=== PATIENT | male | born 1945 | race Caucasian/White ===

== ENCOUNTER 2022-05-07 11:00 | Outpatient (CLI) | payer MEDICARE, BC, SELFPAY ==
[2022-05-07 12:39] LABS: Albumin* 4.1 g/dL (3.3-5.0); Chloride* 105 mmol/L (96-114)
[2022-05-07 12:40] LABS: Potassium* 4.3 mmol/L (3.6-5.1); Sodium* 138 mmol/L (135-149)
[2022-05-07 12:42] LABS: Alkaline Phosphatase* 60 U/L (40-150); Aspartate Amino Transferase* 25 U/L (12-35); Bilirubin Total* 0.6 mg/dL (0.1-1.5); Blood Urea Nitrogen* 26 mg/dL (7-30); Carbon Dioxide* 30 mmol/L (20-32); Cholesterol* 152 mg/dL (90-199); Creatinine* 1.4 mg/dL (0.5-1.5); Estimated Glomerular Filt Rate 52.41; Glucose* 106 mg/dL (60-115); Triglycerides* 168 mg/dL (40-149)
[2022-05-07 12:43] LABS: Alanine Aminotransferase* 14 U/L (4-50); Calcium* 9.8 mg/dL (8.4-10.6); HDL Cholesterol* 44 mg/dL (>=40); LDL Cholesterol Calculated 74 mg/dL (<100)
[2022-05-07 13:14] LABS: PSA Screen* 2.24 ng/mL (0.10-4.00)
== END 2022-05-07 11:01 | disposition home or self-care (01) ==
PROVIDERS: PCP Internal Medicine; Visit Provider Internal Medicine
DX: Z00.00 Encounter for general adult medical examination without abnormal findings (principal); E78.5 Hyperlipidemia, unspecified; Z12.5 Encounter for screening for malignant neoplasm of prostate
CPT/HCPCS: 80053; 80061; 84153

== ENCOUNTER 2023-05-12 08:42 | Outpatient (CLI) | payer MEDICARE, BC, SELFPAY | END 2023-05-12 08:43 | disposition home or self-care (01) | LOC: NFLDREF 05-13 10:59 | PROVIDERS: PCP Internal Medicine; Referring Provider Internal Medicine; Visit Provider Internal Medicine | DX: E78.5 Hyperlipidemia, unspecified (principal); I10 Essential (primary) hypertension; N52.9 Male erectile dysfunction, unspecified; Z12.5 Encounter for screening for malignant neoplasm of prostate | CPT/HCPCS: 80053; 80061; 84153 ==

== ENCOUNTER 2023-05-14 15:19 | Outpatient (CLI) | payer MEDICARE, BC, SELFPAY | END 2023-05-14 15:20 | disposition home or self-care (01) | LOC: NFLDREF 15:20 | PROVIDERS: PCP Internal Medicine; Visit Provider Internal Medicine | DX: Z00.00 Encounter for general adult medical examination without abnormal findings (principal); I10 Essential (primary) hypertension; E78.5 Hyperlipidemia, unspecified; N52.9 Male erectile dysfunction, unspecified | CPT/HCPCS: 84270; 84402; 84403 ==

== ENCOUNTER 2024-05-14 08:28 | Outpatient (CLI) | payer MEDICARE, BC, SELFPAY ==
--- OUTSIDE RECORDS SUMMARY | 2024-05-14 17:50 | XMS_ITS | Clinical Summary ---
Author Organization [facility] Address [place], [place] [address] Care Team Providers Care Rn Neurology Name Role Phone Ric Gonzalez MD Primary Care Provider [phone] Allergies Active Allergy Reactions Criticality Noted Date Comments Oxycodone Nausea Only 08/21/2018 Medications Medication Sig Dispensed Refills Start Date End Date Status simvastatin (ZOCOR) 10 mg tablet Take 1 tablet by mouth at bedtime. 0 03/16/2012 Active Active Problems Problem Noted Date Diagnosed Date Diverticulosis of large intestine without hemorr vanessa Immunizations Name Administration Dates Next Due Influenza A (H1N1), Inactivated (Age >=3 Years) 11/08/2009 Influenza, IIV3 (Age >=3 years) 07/29/2011,08/09 Pneumococcal Poly,23-Valent (Pneumovax) 05/07/20 11 Pneumococcal conj 13-Valent (Prevnar 13) 014 Family History Medical History Relation Name Comments Heart Disease Father Heart Disease Mother Relation Name Status Comments Father Mother Social History Tobacco Use Types Packs/Day Years Used Date Smoking Tobacco: Never Smokeless Tobacco: Never Alcohol Use Standard Drinks/Week Comments Yes 0 (1 standard drink = 0.6 oz pur e alcohol) 3-4 times per week, one drink Sex and Gender Information Value Date Recorded Sex Assigned at Not on file Gender Identity Not on file Sexual Orientation Not on file Obstetrics History Last Filed Vital Signs Vital Sign Reading Time Taken Comments Blood Pressure 135/70 08/21/2018 10:15 AM CDT Pulse 72 08/21/2018 10:15 AM CDT Temperature 36.8 ??C (98.3 ??F) 08/21/2018 7:53 AM CD T Respiratory Rate 16 08/21/2018 10:15 AM CDT Oxygen Saturation 97% 08/21/2018 10:15 AM CDT Inhaled Oxygen Concentration - - Weight 89.9 kg (198 lb 3.1 oz) 08/21/2018 7:53 A M CDT Height 179.1 cm (5' 10.5) 08/21/2018 7:53 AM CD T Body Mass Index 28.04 08/21/2018 7:53 AM CDT Plan of Treatment Health Maintenance Due Date Last Done Comments Tdap 1956 Depression screening for age 12+ 1958 BMI (ht and wt on same day) for age 18+ 1964 Hepatitis C screening for age 18-79 1964 Tetanus booster 1966 Zoster (shingles) series for age 50+ (1 of 2) 1996 Pneumococcal series for age 65+ (3 of 3 - PPSV23 or PCV20) 11/01/2019 11/01/2014, 05/07/2011 COVID-19 vaccine series ( season) 2023 Influenza for age 65+ 07/04/2024 07/29/2011 , 08/09/2010, 11/08/2009 Advance Directives Documents on File 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
== END 2024-05-14 08:29 | disposition home or self-care (01) ==
LOC: NFLDREF 17:49
PROVIDERS: PCP Internal Medicine; Referring Provider Internal Medicine; Visit Provider Internal Medicine
DX: I10 Essential (primary) hypertension (principal); E78.5 Hyperlipidemia, unspecified; Z12.5 Encounter for screening for malignant neoplasm of prostate
CPT/HCPCS: 80053; 80061; G0103

== ENCOUNTER 2024-07-22 08:26 | Outpatient (CLI) | payer MEDICARE, BC, SELFPAY ==
--- OUTSIDE RECORDS SUMMARY | 2024-07-25 02:23 | XMS_ITS | Clinical Summary ---
Author Organization [facility] Address [place], [place] [address] Care Team Providers Care Brazer Crawler Torch Name Role Phone Ric Gonzalez MD Primary Care Provider Allergies Active Allergy Reactions Criticality Noted Date Comments Oxycodone Nausea Only 08/21/2018 Medications Medication Sig Dispensed Refills Start Date End Date Status simvastatin (ZOCOR) 10 mg tablet Take 1 tablet by mouth at bedtime. 0 03/16/2012 Active polyethylene glycol-electrolyte (Golytely) 236-22.74-6.74 -5.86 gram suspensionIndications :Screen for colon cancer Take 4,000 mL by mouth one time for 1 dose. 4000 mL 07/02/2024 07/02/2024 Active Problems Problem Noted Date Diagnosed Date Diverticulosis of large intestine without hemorr vanessa Encounters Date Type Department Care Team Description 07/02/2024 8:14 AM CDT - 07/02/2024 11:59 PM CDT Hospital Encounter [facility] [address] [place] [address] Guillaume Hill MD Other male erectile dysfunction; Unilateral inguinal hernia without obstruction or gangrene, recurrence not specified 07/02/2024 Telephone [facility] [address] [place] [phone] Atul Cheema DO Screening 07/02/2024 Transcribe Orders [facility] [address] [place] [address] Ric Gonzalez MD 07/02/2024 Travel 06/22/2024 Telephone [facility] [address] [place] [address] Ric Gonzalez MD Outside Order (ORDER REFERRAL FOR COLONOSCOPY ) from Last 3 Months Immunizations Name Administration Dates Next Due Influenza [...] 08/21/2018 7:53 AM CDT Plan of Treatment Upcoming Encounters Date Type Department Care Team (Late st Contact Info) Description 09/07/2024 9:10 AM 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 Hospital Encounter [facility] [address] [facility] [place] [address] Ernestina Mclean, DO [address] [facility] [place] [address] 09/07/2024 9:10 AM ROUNDHOUSE SUPERVISOR - 09/07/2024 10:00 AM ROUNDHOUSE SUPERVISOR Surgery [facility] [address] [facility] [address] [place] [address] Ernestina Mclean DO [address] [place] [address] COLONOSCOPY Scheduled Procedures Name Priority Associated Diagnoses Date/Ti me COLONOSCOPY Screen for colon cancer 09/07/2024 9:10 AM ROUNDHOUSE SUPERVISOR Health Maintenance Due Date Last Done Comments Tdap 1956 Depression screening for age 12+ 1958 BMI (ht and wt on same day) for age 18+ 1964 Hepatitis C screening for age 18-79 1964 Tetanus booster 1966 Zoster (shingles) series for age 50+ (1 of 2) 1996 RSV vaccine for adults or pr egnancy (1 - 1-dose 60+ series) 2006 Pneumococcal series for age 65+ (3 of 3 - PPSV23 or PCV20) 11/01/2019 11/01/2014, 05/07/2011 COVID-19 vaccine series (3 - season) 2024 08/01/2023, 07/17/2022 Influenza for age 65+ 07/04/2024 07/29/2011 , 08/09/2010, 11/08/2009 Procedures Procedure Name Priority Date/Time Associated Diagnosis Comments CT ABDOMEN PELVIS W Routine 07/02/2024 8 :42 AM CDT Other male erectile dysfunction Unilateral inguinal hernia without obstruction or gangrene, recurrence not specified CREATININE,ISTAT Routine 07/02/2024 8:30 AM CDT from Last 3 Months Results * CT ABDOMEN PELVIS W (07/02/2024 8:42 AM CDT) Anatomical Region Laterality Modality Abdomen, Pelvis, AORTA, LIVER, SPLEEN Computed Tomography 07/04/2024 10:4 1 AM CDT Impressions 07/04/2024 10:41 AM CDT 1. Moderate right inguinal hernia, large left inguinal hernia containing bowel without incarceration/obstruction. 2. Enlarged prostate gland. Wall thickening urinary bladder incompletely distended poor visualization of the pelvis with streak artifact from hip arthroplasties Please note that all CT scans at this facility use dose modulation, iterative reconstruction, and/or weight-based dosing when appropriate to reduce radiation dose to as low as reasonably achievable. Dictated by Melia Minor MD @ 07/04/2024 10:41:13 AM (Electronically Signed) Narrative 07/04/2024 10:41 AM CDT For Patients: ??As a result of the Cures Act, medical imaging exams and procedure reports are released immediately into your electronic medical record. ??You may view this report before your referring provider. ??If you have questions, please contact your health care provider. INDICATION: Inguinal hernia without obstruction TECHNIQUE: CT abdomen and pelvis with 100 mL Omnipaque 350 COMPARISON: None. FINDINGS: Lower chest: The heart is mildly enlarged coronary artery calcification. Liver: Tiny too small to characterize low-attenuation lesions in the liver Gallbladder and bile ducts: No stones or inflammation. No biliary dilatation. Pancreas: Unremarkable. No mass or inflammation. Spleen: Normal in size. No masses. Adrenal glands: Normal in size. No nodules. Kidneys: Normal in size. No suspicious masses, stones, or hydronephrosis. GI tract: Duodenal diverticulum. Normal appendix. Diverticulosis. Vasculature: Abdominal aorta is normal in caliber. Lymph nodes: No lymphadenopathy. Peritoneum/Abdominal Wall: Bilateral inguinal hernias containing bowel moderate on the right large on the left. No obstruction is seen trace amount of fluid in the right inguinal hernia sac. No inflammatory changes visualized Pelvis: Wall thickening urinary bladder which is incompletely distended. Enlarged prostate gland Bones: Hip arthroplasty causing streak artifact in the pelvis Procedure Note Melia Minor MD - 07/04/2024 For Patients: As a result of the Cures Act, medical imagingexams and procedure reports are released immediately into your electronicmedical record. You may view this report before your referring provider.If you have questions, please contact your health care provider. INDICATION: Inguinal hernia without obstruction TECHNIQUE: CT abdomen and pelvis with 100 mL Omnipaque 350 COMPARISON: None. FINDINGS: Lower chest: The heart is mildly enlarged coronary artery calcification. Liver: Tiny too small to characterize low-attenuation lesions in the liver Gallbladder and bile ducts: No stones or inflammation. No biliarydilatation. Pancreas: Unremarkable. No mass or inflammation. Spleen: Normal in size. No masses. Adrenal glands: Normal in size. No nodules. Kidneys: Normal in size. No suspicious masses, stones, or hydronephrosis. GI tract: Duodenal diverticulum. Normal appendix. Diverticulosis. Vasculature: Abdominal aorta is normal in caliber. Lymph nodes: No lymphadenopathy. Peritoneum/Abdominal Wall: Bilateral inguinal hernias containing bowelmoderate on the right large on the left. No obstruction is seen traceamount of fluid in the right inguinal hernia sac. No inflammatory changesvisualized Pelvis: Wall thickening urinary bladder which is incompletely distended.Enlarged prostate gland Bones: Hip arthroplasty causing streak artifact in the pelvis IMPRESSION: 1. Moderate right inguinal hernia, large left inguinal hernia containingbowel without incarceration/obstruction. 2. Enlarged prostate gland. Wall thickening urinary bladder incompletelydistended poor visualization of the pelvis with streak artifact from hiparthroplasties Please note that all CT scans at this facility use dose modulation,iterative reconstruction, and/or weight-based dosing when appropriate toreduce radiation dose to as low as reasonably achievable. Dictated by Melia Minor MD @ 07/04/2024 10:41:13 AM (Electronically Signed) Guillaume Sebastian Hill MD CT * (ABNORMAL) CREATININE,ISTAT (07/02/2024 8:30 AM CDT) CREATININE, POCT 1.40(H) 0.57 - 1.11 mg/dL 07/02/2024 8:34 AM [facility] Comment:Caution: Patients ta aniceto Hydroxyurea have falsely increased iStat Creatinine results. Verify creatinine results ordering a Creatinine (36561.2) eGFR 51(L) >90 mL/min/1.7 3m2 07/02/2024 8:34 AM [facility] Comment:As of 2022, eG FR is calculated by the CKD-EPI creatinine equation without race adjustment. eGFR can be influenced by muscle mass, exercise, and diet. The reported eGFR is an estimation only and is only applicable if the renal function is stable. 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
== END 2024-07-22 08:27 | disposition home or self-care (01) ==
LOC: NFLDREF 07-25 02:20
PROVIDERS: PCP Internal Medicine; Referring Provider Internal Medicine; Visit Provider Internal Medicine
DX: N52.9 Male erectile dysfunction, unspecified (principal)
CPT/HCPCS: 84403

== ENCOUNTER 2024-08-26 09:17 | Outpatient (CLI) | payer MEDICARE, BC, SELFPAY ==
--- OUTSIDE RECORDS SUMMARY | 2024-08-26 09:21 | XMS_ITS | Clinical Summary ---
Author Organization [facility] Address [place], [place] [address] Care Team Providers Care Tool Coordinator Name Role Phone Ric Gonzalez MD Primary [...] Encounters Date Type Department Care Team Description 08/20/2024 Telephone [facility] [address] [place] [address] Ernestina Mclean DO Appointment (Cancellation 09/07/2024) 07/02/2024 8:14 AM CDT - 07/02/2024 11:59 PM CDT Hospital Encounter [facility] [address] [place] [address] Guillaume Hill MD Other male erectile dysfunction; Unilateral inguinal hernia without obstruction or gangrene, recurrence not specified 07/02/2024 Telephone [facility] [address] [place] [address] Atul Cheema DO Screening 07/02/2024 Transcribe Orders [facility] [address] [place] [address] Ric Gonzalez MD 07/02/2024 Travel 06/22/2024 Telephone [facility] [address] [place] [address] Ric Gonzalez MD Outside Order (ORDER REFERRAL [...] age 18+ 1964 Hepatitis C screening for ag e 18-79 1964 Tetanus booster 1966 Zoster (shingles) series for age 50+ (1 of 2) 1996 Pneumococcal series for age 65+ (3 of 3 - PPSV23 or PCV20) 11/01/2019 11/01/2014, 05/07/2011 RSV vaccine for adults or (1 - 1-dose 75+ series) 2021 Influenza for age 65+ 07/04/2024 07/29/2011 , 08/09/2010, 11/08/2009 COVID-19 vaccine series Completed 07/22/20 24, 08/01/2023, 07/17/2022, Additional history exists Procedures Procedure Name Priority Date/Time Associated Diagnosis [...] For Patients: ??As a result of the Century Cures Act, medical imaging exams and procedure [...] @ 07/04/2024 10:41:13 AM (Electronically Signed) Guillaume Hill MD CT * (ABNORMAL) CREATININE,ISTAT (07/02/2024 8:30 AM CDT) CREATININE, POCT 1.40(H) 0.57 - 1.11 mg/dL 07/02/2024 8:34 AM CDT [facility] Comment:Caution: Patients ta aniceto Hydroxyurea have falsely increased iStat Creatinine results. Verify creatinine results ordering a Creatinine (66643.2) eGFR 51(L) >90 mL/min/1.7 3m2 07/02/2024 8:34 AM CDT [facility] Comment:As of 2022, eG FR is calculated by the CKD-EPI creatinine equation without race adjustment. eGFR can be influenced by muscle mass, exercise, and diet. The reported eGFR is an estimation only and is only applicable if the renal function is stable. 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
--- NOTE | 2024-08-26 10:43 | W.ANESCHARGE ---
Anesthesia Charges Start Date/Time Anesthesia Start Date: 08/26/24 Anesthesia Start Time: 10:17 Stop Date/Time Anesthesia Stop Date: 08/26/24 Anesthesia Stop Time: 10:51 Summary Extremes of Age - Over 70 or under 1: MDA
--- NOTE | 2024-08-26 10:54 | W.ANESCHARGE ---
Anesthesia Charges Start Date/Time Anesthesia Start Date: 08/26/24 Anesthesia Start Time: 10:17 Stop Date/Time Anesthesia Stop Date: 08/26/24 Anesthesia Stop Time: 10:51
== END 2024-08-26 09:18 | disposition home or self-care (01) ==
LOC: OP CLINIC 09:20
PROVIDERS: PCP Internal Medicine; Visit Provider Surgery
DX: Z12.11 Encounter for screening for malignant neoplasm of colon (principal); K57.30 Diverticulosis of large intestine without perforation or abscess without bleeding; K64.4 Residual hemorrhoidal skin tags; Z86.0100 Personal history of colon polyps, unspecified
CPT/HCPCS: 00812; 45378; 99100; J2704

== ENCOUNTER 2025-02-24 06:27 | Day surgery (SDC) | payer MEDICARE, BC, SELFPAY ==
[2025-02-24] VITALS (13 sets, daily range): BP systolic 109–144; BP diastolic 76–98; PULSE 66–88; RESP 12–18; TEMP 36.3–37; O2SAT 92–99; BMI 31.6
[2025-02-24] MEDS: SODIUM CHLORIDE 0.9 % (FLUSH) 10 ML SYRINGE IVF (07:15)
[2025-02-24] MEDS: LACTATED RINGERS 1000 ML 1,000 ML 100 ML IV ×2 (07:15→10:16)
[2025-02-24] MEDS: CEFAZOLIN 1 GM inj IVP (08:29)
[2025-02-24] MEDS: BUPIVACAINE 0.25% 30 ML INJECTION (08:48)
--- NOTE | 2025-02-24 10:35 | W.PM.H&PU ---
History & Physical Update History & Physical Update H&P Reviewed and patient assessed: No changes noted H&P Updates: Patient has bilateral large hernias. He again wants to pursue just fixing the right side since it is his symptomatic side. I outlined the procedure at length. Risks and benefits were discussed. Patient had time to ask all questions and concerns.
--- NOTE | 2025-02-24 10:37 | P.GSOP_ITS ---
Operative Note Date of procedure: 02/24/25 Pre-op diagnosis: Right inguinal hernia Post-op diagnosis: Same Type of Procedure: Open right inguinal hernia repair with placement of mesh Indications: Patient is a 79-year-old male who presented to clinic with bilateral inguinal hernias. He was only symptomatic on the right side and so expressed a desire only to fix that side. Please see consultation note for full discussion. Risks and benefits of operative intervention were discussed at length with the patient. Risks included but was not limited to: Bleeding, infection, risk of damage to surrounding structures, possible need for additional procedures and postoperative complications such as pneumonia, pulmonary emboli or UT. All qu estions and concerns were addressed with the patient agreeing to proceed. Procedure Description: After discussing the risks and benefits of the procedure, the patient signed informed consent.? The operative site was marked and the patient was brought to the operating room and placed on the operating table in supine position.? Care was taken to pad the patient's pressure points.?? The patient was then intubated by anesthesia.?? The operative site was then prepped and draped in the usual sterile fashion.? A time-out was then performed. Local anesthetic was injected into the skin and subcutaneous tissue overlying the inguinal canal. An oblique incision would was made over the external ring. Dissection was carried down into the subcutaneous tissue using cautery until the external oblique fascia was encountered. Patient with a significant amount of subcutaneous fat. This was cleared off. The external ring was identified and after injection of more local anesthetic, the external oblique was incised using a knife. This was extended using the Metzenbaum scissors with care to dissect the underlying cord structures away before cutting. A large hernia sac was present. This was dissected away from the cord structures and incarcerated fat reduced. Once partially reduced the cord was cleared from the inside of the inguinal canal and looped with a Bethany drain. A large indirect and direct inguinal hernia was identified. The hernia sac was dissected off of the cord structures. This was opened to ensure no intra- abdominal contents were present. The hernia sac was then ligated proximal and reduced into the abdomen. The floor of the inguinal canal was cleared off. A large direct defect was present. A large piece of Bard soft polypropylene mesh was obtained and cut to size. This was secured to the pubic tubercle using to 2-0 Prolene and a double-arm suture. The Prolene was run along the inguinal ligament and superiorly along the transversalis fascia securing the tails behind the cord and recreating the internal ring. Several interrupted stitches of 2-0 Prolene were placed on the medial border. The wound was examined for hemostasis. The external oblique fascia was then reapproximated with absorbable suture. The wound was then closed in layers including Melody's fascia and the dermis with the cervical suture. The skin was then closed with a running subcuticular suture. Sterile dressings were applied. Instrument sponge and needle counts were correct at the end of the case. The patient was woken and taken to the PACU in stable condition. Findings: Large indirect and direct inguinal hernia Anesthesia: AVA Surgeon: Cherri Barron MD Estimated blood loss (mL): 10 Condition: stable Disposition: PACU
--- NOTE | 2025-02-24 10:46 | P.ANES_ITS ---
Anesthesia Charges Start Date/Time Anesthesia Start Date: 02/24/25 Anesthesia Start Time: 08:13 Stop Date/Time Anesthesia Stop Date: 02/24/25 Anesthesia Stop Time: 10:47 Coding CPT Codes CPT Codes: ANESTH REPAIR OF HERNIA - 06328 ([id number]) P2 - PATIENT W/MILD SYST DISEASE, QK - CASH REGISTER OPERATOR 2-4 CNCRNT ANES PROC, QX - HALF SOLE FITTER SVC W/ MD MED DIRECTION
--- NOTE | 2025-02-24 10:46 | W.ANESCHARGE ---
Anesthesia Charges Start Date/Time Anesthesia Start Date: 02/24/25 Anesthesia Start Time: 08:13 Stop Date/Time Anesthesia Stop Date: 02/24/25 Anesthesia Stop Time: 10:47 Coding CPT Codes CPT Codes: ANESTH REPAIR OF HERNIA - 41358 ([id number]) P2 - PATIENT W/MILD SYST DISEASE, QK - MORTUARY OPERATIONS MANAGER 2-4 CNCRNT ANES PROC, QX - SOAPING DEPARTMENT SUPERVISOR SVC W/ MD MED DIRECTION
[2025-02-24] MEDS: ONDANSETRON 2 MG/ML inj 4 MG IVP (10:57)
== END 2025-02-24 12:48 | disposition home or self-care (01) ==
PROVIDERS: PCP Internal Medicine; Visit Provider Surgery
PROC: (CPT 49505; principal; 2025-02-24 08:00)
DX: K40.20 Bilateral inguinal hernia, without obstruction or gangrene, not specified as recurrent (principal)
CPT/HCPCS: 49505; 00830; C1781; J0330; J0665; J0690; J1885; J2405; J2704; J3010; J7120

== ENCOUNTER 2025-09-08 09:05 | Outpatient (CLI) | payer MEDICARE, BC, SELFPAY | END 2025-09-08 09:06 | disposition home or self-care (01) | LOC: NFLDREF 09-12 03:52 | PROVIDERS: PCP Internal Medicine; Referring Provider Internal Medicine; Visit Provider Internal Medicine | DX: R94.4 Abnormal results of kidney function studies (principal) | CPT/HCPCS: 82565 ==